=== PATIENT | male | born 1950 | race Caucasian/White ===

== ENCOUNTER 2016-12-29 03:41 | Inpatient (IN) | payer BC, MEDICARE ==
--- NOTE | ~2016-12-29 | DS ---
Discharge Summary [facility] [address] [place]. [address] NAME: WELLINGTON COSTELLO : 52 STATUS : DIS IN PAT#: [id number] AGE: 66 ADM/REG DATE : 12/29/16 MR#: [id number] REPORT SERV DATE: 01/01/17 DICTATED BY: CASTRO SANTOS DATE: 12/31/16 REPORT STATUS : Draft TRANSCRIBED BY: MODL DATE: 12/31/16 ADMISSION DATE: 12/29/2016 DISCHARGE DATE: 12/31/2016 CHIEF COMPLAINT ON ADMISSION: Shortness of breath. DISCHARGE DIAGNOSES: 1. Community-acquired pneumonia. 2. Sepsis due to community-acquired pneumonia, resolved. 3. History of coronary artery disease with prior percutaneous coronary intervention. 4. History of atrial fibrillation. HISTORY OF PRESENT ILLNESS: Please see full H and P for details regarding initial presentation. HOSPITAL COURSE: 1. Left lower lobe community-acquired pneumonia with acute hypoxic respiratory failure and sepsis. The patient was admitted to the hospital, started on Rocephin and azithromycin, he received three days of this course. His oxygen requirements have decreased down to room air, and sepsis has improved as well. White blood cell count has improved to 11.7. He is feeling much better and wishes to be discharged to home. We will recommend outpatient followup with primary care with followup chest x-ray. His imaging here included a CTA of the chest, which showed no pulmonary embolism; however, did show subtle nodular infiltrate inferior lingular segment and peripheral bilateral lower lobe at the lung bases suspicious for early acute bilateral pneumonia pattern. He will be discharged on Levaquin to complete his course. 2. History of atrial fibrillation status post pacemaker as well as history of coronary artery disease prior PCI. The patient will be continued on his outpatient regimen. His INR is 2.1 at discharge. We will need this to be followed up at discharge given he will be on fluoroquinolone. Again follow up with primary care in five to seven days. We would recommend an INR check on Friday. 3. History of hypothyroidism and BPH. Continue outpatient medications without change. MEDICATION AT DISCHARGE: The patient will resume all previous home medications and start Levaquin 750 mg p.o. for an additional four days. DISCHARGE LABORATORY DATA: White blood cell count 11.7, hemoglobin 10.6, and platelet count 243. BMP is grossly unremarkable. Time spent on this discharge is greater than 30 minutes. DNK/MODL Discharge Summary [place] [address] [address] NAME: WELLINGTON COSTELLO : 52 STATUS : DIS IN PAT#: [id number] AGE: 66 ADM/REG DATE : 12/29/16 MR#: [id number] REPORT SERV DATE: 01/01/17 DICTATED BY: CASTRO SANTOS DATE: 12/31/16 REPORT STATUS : Draft TRANSCRIBED BY: MODL DATE: 12/31/16 Castro Santos MD / [id number] CC: MD Kerri Hill RN
--- NOTE | ~2016-12-29 | HP ---
History And Physical [place] [id number] [place]. [address] NAME: WELLINGTON GUZMAN : 52 STATUS : ADM IN [facility]#: [id number] AGE: 66 ADM/REG DATE : 12/29/16 MR#: [id number] REPORT SERV DATE: 12/29/16 DICTATED BY: GIANFRANCO KEYS DATE: 12/29/16 REPORT STATUS : Draft TRANSCRIBED BY: MODL DATE: 12/29/16 DATE OF ADMISSION: 12/29/2016 POINT OF ENTRY: [facility] Emergency Department. PRIMARY CARE PHYSICIAN: Dr. Khan at [facility]. PRIMARY CONTROL ROOM TECHNICIAN: Dr. Nguyễn with [facility]. CHIEF COMPLAINT: Shortness of breath, chest tightness, and fevers. HISTORY OF PRESENT ILLNESS: Mr. Guzman is a 66-year-old gentleman with a history of coronary artery disease with prior PCI as well as hypertension; atrial fibrillation, on Coumadin as well as hypothyroidism, who presents to the emergency department with multiple complaints including shortness of breath, chest tightness as well as fevers. The patient states that he has been having cold-like symptoms since Friday including low- grade fevers, sinus congestion, drainage, cough, and sputum production. On Friday night at approximately 10:00 p.m., he had the acute onset of severe chest tightness and shortness of breath resulting in respiratory distress for which he called 911. Upon EMS arrival, he was noted to be hypoxemic as well as had a low-grade fever of 101 degrees Fahrenheit. The patient at that time also was reporting what sounds to be either chills or rigors. Initial evaluation in the emergency department was remarkable for hypoxemia with an ABG with saturation of 91% on 3 liters nasal cannula, white count of 12,100, and troponin mildly elevated at 0.12. Chest x-ray shows a left lower lobe infiltrate. CTA of the chest was negative for PE, but did show bibasilar infiltrates concerning for early developing pneumonia. The patient was subsequently admitted to the Hospitalist Service for further evaluation and management. The patient, otherwise, denies any palpitations, abdominal pain, nausea, vomiting, diarrhea, constipation, dysuria, lower extremity edema, melena, hematochezia, hemoptysis, or hematemesis. COMPREHENSIVE REVIEW OF SYSTEMS: Otherwise, negative unless listed in the history of present illness. PREVIOUS MEDICAL HISTORY: 1. Coronary artery disease with prior PCI. 2. Hypertension. 3. Atrial fibrillation, on anticoagulation. 4. Hypothyroidism. 5. BPH. 6. Status post pacemaker insertion. PAST SURGICAL HISTORY: History And Physical [address] [address] NAME: WELLINGTON GUZMAN : 52 STATUS : ADM IN [facility]#: [id number] AGE: 66 ADM/REG DATE : 12/29/16 MR#: [id number] REPORT SERV DATE: 12/29/16 DICTATED BY: GIANFRANCO KEYS DATE: 12/29/16 REPORT STATUS : Draft TRANSCRIBED BY: RIGO DATE: 12/29/16 1. Bilateral total knee replacement. 2. Left total hip. 3. Pacemaker insertion. 4. Cardiac PCI. ALLERGIES: NO KNOWN DRUG ALLERGIES. HOME MEDICATIONS: Pending at the time of dictation. SOCIAL HISTORY: He is a former smoker, quit in 2001. Denies alcohol. Denies illicits. FAMILY MEDICAL HISTORY: Mother with coronary artery disease. Father with hypertension. Siblings with coronary artery disease. LABORATORIES AND IMAGIN. White count is 12.1, hemoglobin is 13.2, hematocrit is 39.4, and platelet count is 233. INR is pending at the time of dictation. 2. Sodium is 136, potassium 3.4, chloride 101, carbon dioxide 26, BUN 15, creatinine 1.33, and glucose is 110. Calcium is 8.8, protein is 7.2, albumin is 3.5, bilirubin is 0.5, ALT is 40, AST is 26, and alkaline phosphatase is 95. 3. Troponin 0.12. 4. BNP is 107.5. 5. Lactic acid is 1.7. 6. Flu swab is negative. 7. ABG; pH is 7.47, pCO2 is 23, PO2 is 58, bicarbonate is 17, saturating 91% on 3 liters nasal cannula. 8. EKG per my review shows normal sinus rhythm. No evidence of any acute ischemia or infarction. 9. Chest x-ray per my review shows a left lower lobe infiltrate. 10.CTA of the chest shows no evidence of pulmonary embolism but shows bibasilar infiltrate concerning for early developing pneumonia. PHYSICAL EXAMINATION: VITAL SIGNS: Temperature is 99.9 degrees Fahrenheit, pulse is 78, respirations 20, saturating 95% on 4 liters of nasal cannula, and blood pressure 116/70. On recheck, it is now blood pressure of 130/54, pulse is 76, and saturating 96% to 98% on 2 liters of nasal cannula. GENERAL: The patient is awake, alert, in no acute distress, resting comfortably. He is a well-developed, well-nourished elderly male. HEENT: Atraumatic and normocephalic. Moist mucous membranes. Pupils are equal, round, and reactive to light and accommodation. Extraocular eye movements are intact. No scleral icterus. NECK: No jugular venous distention. No carotid bruits. CARDIAC: Regular rate and rhythm. No murmurs, rubs, or gallops. HEART: Normal S1 and S2. LUNGS: He is on oxygen but in no respiratory distress. He does have inspiratory rales and rhonchi in almost all lung rick. History And Physical [address] [address] NAME: WELLINGTON GUZMAN : 52 STATUS : ADM IN [facility]#: [id number] AGE: 66 ADM/REG DATE : 12/29/16 MR#: [id number] REPORT SERV DATE: 12/29/16 DICTATED BY: GIANFRANCO KEYS DATE: 12/29/16 REPORT STATUS : Draft TRANSCRIBED BY: RIGO DATE: 12/29/16 ABDOMEN: Obese, soft, nontender, and nondistended. Good bowel sounds. No rebound, guarding, or rigidity. EXTREMITIES: Warm and well perfused. No cyanosis, clubbing, or edema. SKIN: Warm and dry. PSYCHIATRIC: Affect is appropriate. NEUROLOGIC: Alert and oriented x3. Cranial nerves 2 through 12 grossly intact. Speech is normal. Gait is not assessed. ASSESSMENT AND PLAN: Mr. Guzman is a 66-year-old gentleman who presents with fevers, cough as well as shortness of breath and chest tightness and found to have evidence of bibasilar pneumonia as well as acute hypoxic respiratory failure. PROBLEM LIST: 1. Community-acquired pneumonia. 2. Acute chronic obstructive pulmonary disease exacerbation versus acute bronchitis. 3. Acute hypoxic respiratory failure. 4. Elevated troponin level. 5. Sepsis. 6. Hypokalemia. PLAN: 1. Pneumonia. We will place the patient on Rocephin and azithromycin. We will try to obtain sputum cultures as well as urinary antigens. Place the patient on pulmonary toilet. 2. Acute COPD exacerbation versus acute bronchitis. The patient denies any history of COPD but does have some smoking history. He has rales and rhonchi in all lung rick but only evidence of very faint infiltrates in the bilateral bases concerning for bronchitis versus COPD. As such, we will place him on some steroids as well as bronchodilators in addition to the above-mentioned antibiotics. 3. Acute hypoxic respiratory failure, likely secondary to #1 and #2 above as CTA was negative for PE, and there does not appear to be any evidence of volume overload. We will attempt to wean as tolerated. The patient is already down to 2 liters by nasal cannula and saturating well. 4. Elevated troponin level. The patient denies any morris chest pain but does keep mentioning chest tightness. I suspect this is all demand ischemia from the patient's hypoxemia, respiratory distress, and pneumonia. We will continue to trend out cardiac enzymes. Continue the patient on aspirin. 5. Sepsis. The patient meets criteria with leukocytosis, fevers, and tachypnea. Lactic acid is within normal limits. Blood cultures have been obtained. We will also try to obtain sputum culture and a urinalysis as well as procalcitonin. Continue IV fluids as well as broad-spectrum antibiotics. 6. Atrial fibrillation, on anticoagulation. We will need to check an INR. Pharmacy to manage his Coumadin. 7. DVT prophylaxis, on Coumadin. 8. Code status. The patient wishes to be a full code. History And Physical [address] [address] NAME: WELLINGTON GUZMAN : 52 STATUS : ADM IN [facility]#: [id number] AGE: 66 ADM/REG DATE : 12/29/16 MR#: [id number] REPORT SERV DATE: 12/29/16 DICTATED BY: GIANFRANCO KEYS DATE: 12/29/16 REPORT STATUS : Draft TRANSCRIBED BY: RIGO DATE: 12/29/16 MADDY/RIGO Gianfranco Keys MD / [id number] CC: Marc Allen PATRICIA J
[2016-12-29 03:36] LABS: BASOPHILS 0.2 %; BASOPHILS ABSOLUTE 0.03 10/3/uL (0.0-0.16); EOSINOPHILS 1.8 %; EOSINOPHILS ABSOLUTE 0.22 10/3/uL (0.0-0.53); HEMATOCRIT 39.4 % (40.0-51.0); HEMOGLOBIN 13.2 g/dL (13.6-17.8); IMMATURE GRANULOCYTES 0.3 %; IMMATURE GRANULOCYTES ABSOLUTE 0.04 10/3/uL (0.0-0.11); LYMPHOCYTES 4.7 %; LYMPHOCYTES ABSOLUTE 0.57 10/3/uL (0.67-4.30); MEAN CORPUS HGB CONC 33.5 g/dL (32.0-36.0); MEAN PLATELET VOLUME 10.1 fL (9.2-13.0); MONOCYTES 5.5 %; MONOCYTES ABSOLUTE 0.66 10/3/uL (0.21-1.20); NEUTROPHILS 87.5 %; NEUTROPHILS ABSOLUTE 10.57 10/3/uL (2.02-8.40); PLATELET COUNT 233 10/3/uL (150-400); RBC DISTRIBUTION WIDTH 13.3 % (12.0-16.0); RED CELL COUNT 4.26 10/6/uL (4.7-6.1)
[2016-12-29 03:37] LABS: CARBOXYHEMOGLOBIN 2.4 % (0-3); DEVICE NC; HCO3 (ACTUAL BICARBONATE) 16.6 MEQ/L (23-27); INSTRUMENT SERIAL # 8087; METHEMOGLOBIN 0.3 % (0-3); O2 CONTENT 17.5 VOL% (18-24); OPERATOR ID 17537; PCO2 (CO2 TENSION) 23 MMHG (35-45); PO2 (O2 TENSION) 58 MMHG (79-93); SAMPLE Arterial; pH 7.47 (7.37-7.43)
[2016-12-29 03:37] LABS: ER CBC TAT 0 Hrs 09 Mins; MANUAL DIFF NO %; MEAN CORPUSCULAR VOLUME 92.5 fL (80-100); WHITE BLOOD CELLS 12.1 10/3/uL (4.5-10.5)
[2016-12-29 03:38] LABS: ALLENS TEST Pos
[2016-12-29 03:40] LABS: INFLUENZA A SCREEN NEGATIVE (NEGATIVE); INFLUENZA B SCREEN NEGATIVE (NEGATIVE)
[2016-12-29 03:53] LABS: LACTATE 1.7 MMOL/L (0.3-2.4)
[2016-12-29 04:03] LABS: A/G RATIO 0.9 (0.7-1.9); ALBUMIN 3.5 G/DL (3.5-5.0); ALKALINE PHOSPHATASE 95 U/L (45-117); BUN (BLOOD UREA NITROGEN) 15 MG/DL (6-23); CALCIUM, SERUM 8.8 MG/DL (8.5-10.4); CHLORIDE, SERUM 101 MMOL/L (96-112); CO2 (CARBON DIOXIDE) 26 MMOL/L (24-34); CREATININE 1.33 MG/DL (0.70-1.30); GFR AFRICAN AMERICAN 65 ML/MIN (>=60); GFR NON AFRICAN AMERICAN 56 ML/MIN (>=60); GLOBULIN 3.7 G/DL (2.5-4.1); GLUCOSE, SERUM 110 MG/DL (60-99); POTASSIUM, SERUM 3.4 MMOL/L (3.5-5.3); SGOT(AST) 26 U/L (5-40); SGPT(ALT) 40 U/L (5-65); SODIUM, SERUM 136 MMOL/L (135-148); TOTAL BILIRUBIN 0.5 MG/DL (0-1.2); TOTAL PROTEIN 7.2 G/DL (6.0-8.5)
[2016-12-29 04:12] LABS: TROPONIN I 0.12 NG/ML (<0.05)
[2016-12-29 07:04] LABS: INTERNATIONAL NORMAL RATI 1.7 UNITS (-); PARTIAL THROMBO TIME 35.2 SEC (22.5-37.2); PROTIME (NOT ORD) 19.7 SEC (12.0-14.5)
[2016-12-29 09:06] LABS: PROCALCITONIN 0.07 ng/mL (<0.5)
[2016-12-29] MEDS ORDERED: PACERONE100 MG PO (12:17)
[2016-12-29] MEDS ORDERED: ASAB PO (12:18)
[2016-12-29] MEDS ORDERED: APRES25 PO (12:18)
[2016-12-29] MEDS ORDERED: PAX20 PO ×2 (12:18→15:45)
[2016-12-29] MEDS ORDERED: VITAMIN E OTC PO (12:19)
[2016-12-29] MEDS ORDERED: VITAMIN B 12 OTC PO (12:20)
[2016-12-29] MEDS ORDERED: CALTRA600D PO (12:21)
[2016-12-29] MEDS ORDERED: LIPITOR80 MG PO (12:22)
[2016-12-29] MEDS ORDERED: IMDUR30 PO (12:22)
[2016-12-29] MEDS ORDERED: JANTOVEN5 MG PO ×2 (12:24→15:47)
[2016-12-29] MEDS ORDERED: SPIRO25 PO (12:24)
[2016-12-29] MEDS ORDERED: JANTOVEN7.5 MG PO ×2 (12:24→15:47)
[2016-12-29] MEDS ORDERED: VITAMIN C100 MG PO (12:25)
[2016-12-29] MEDS ORDERED: PROMEGA PO (12:26)
[2016-12-29] MEDS ORDERED: FERROUS SULF325 M1 PO (12:26)
[2016-12-29] MEDS ORDERED: MIRAPEX125 PO ×2 (12:27→15:45)
[2016-12-29] MEDS ORDERED: LIOR10 PO (12:27)
[2016-12-29] MEDS ORDERED: COREG3 PO (12:28)
[2016-12-29] MEDS ORDERED: FLOMAX4 PO (12:28)
[2016-12-29] MEDS ORDERED: LEVOTHYROXIN25 MCG PO (12:28)
[2016-12-29 13:28] LABS: CPK 127 U/L (0-200)
[2016-12-29 13:29] LABS: CK-MB 1.3 NG/ML
[2016-12-29] MEDS ORDERED: VITAMIN C OTC PO (15:42)
[2016-12-29] MEDS ORDERED: HALF81 PO (15:43)
[2016-12-29] MEDS ORDERED: OMEGA-3 OTC PO (15:44)
[2016-12-29 16:16] LABS: ASCORBIC ACID (UR NOT ORDER) 40 (NEG); BILIRUBIN, URINE NEGATIVE (NEG); KETONE, URINE NEGATIVE (NEG); LEUKOCYTE ESTERASE(NOT OR NEG (NEG); WBC (NOT ORDERED) (RFLEX) < 1 (0-5)
[2016-12-29 19:25] LABS: CK-MB 2.2 NG/ML; CPK 171 U/L (0-200); TROPONIN I 0.06 NG/ML (<0.05)
[2016-12-30 06:20] LABS: BASOPHILS 0.1 %; BASOPHILS ABSOLUTE 0.01 10/3/uL (0.0-0.16); EOSINOPHILS 0 %; HEMOGLOBIN 10.8 g/dL (13.6-17.8); IMMATURE GRANULOCYTES 0.3 %; IMMATURE GRANULOCYTES ABSOLUTE 0.06 10/3/uL (0.0-0.11); LYMPHOCYTES 3.5 %; LYMPHOCYTES ABSOLUTE 0.61 10/3/uL (0.67-4.30); MEAN CORPUS HGB CONC 33.3 g/dL (32.0-36.0); MEAN CORPUSCULAR HEMOGLOB 30.8 pg (26.0-34.0); MEAN CORPUSCULAR VOLUME 92.3 fL (80-100); MEAN PLATELET VOLUME 10.2 fL (9.2-13.0); NEUTROPHILS 89.1 %; NEUTROPHILS ABSOLUTE 15.33 10/3/uL (2.02-8.40); PLATELET COUNT 228 10/3/uL (150-400); RBC DISTRIBUTION WIDTH 13.3 % (12.0-16.0); RED CELL COUNT 3.51 10/6/uL (4.7-6.1)
[2016-12-30 06:29] LABS: HEMATOCRIT 32.4 % (40.0-51.0); MANUAL DIFF NO %; WHITE BLOOD CELLS 17.2 10/3/uL (4.5-10.5)
[2016-12-30 06:31] LABS: INTERNATIONAL NORMAL RATI 1.9 UNITS (-); PROTIME (NOT ORD) 21.6 SEC (12.0-14.5)
[2016-12-30 06:44] LABS: A/G RATIO 0.9 (0.7-1.9); CALCIUM, SERUM 8.5 MG/DL (8.5-10.4); CHLORIDE, SERUM 110 MMOL/L (96-112); CO2 (CARBON DIOXIDE) 22 MMOL/L (24-34); CREATININE 1.13 MG/DL (0.70-1.30); GFR AFRICAN AMERICAN 79 ML/MIN (>=60); GFR NON AFRICAN AMERICAN 68 ML/MIN (>=60); GLOBULIN 3.2 G/DL (2.5-4.1); GLUCOSE, SERUM 126 MG/DL (60-99); SGOT(AST) 23 U/L (5-40); SGPT(ALT) 29 U/L (5-65); TOTAL BILIRUBIN 0.5 MG/DL (0-1.2); TOTAL PROTEIN 6.2 G/DL (6.0-8.5)
[2016-12-30 06:45] LABS: ALKALINE PHOSPHATASE 66 U/L (45-117); BUN (BLOOD UREA NITROGEN) 20 MG/DL (6-23); SODIUM, SERUM 143 MMOL/L (135-148); TROPONIN I 0.06 NG/ML (<0.05)
[2016-12-31 05:10] LABS: BASOPHILS 0.1 %; BASOPHILS ABSOLUTE 0.01 10/3/uL (0.0-0.16); EOSINOPHILS 0 %; HEMATOCRIT 32.7 % (40.0-51.0); HEMOGLOBIN 10.6 g/dL (13.6-17.8); IMMATURE GRANULOCYTES 0.6 %; IMMATURE GRANULOCYTES ABSOLUTE 0.07 10/3/uL (0.0-0.11); LYMPHOCYTES 6.8 %; MANUAL DIFF NO %; MEAN CORPUS HGB CONC 32.4 g/dL (32.0-36.0); MEAN CORPUSCULAR HEMOGLOB 30.5 pg (26.0-34.0); MEAN PLATELET VOLUME 10.4 fL (9.2-13.0); MONOCYTES 8.1 %; MONOCYTES ABSOLUTE 0.95 10/3/uL (0.21-1.20); NEUTROPHILS 84.4 %; NEUTROPHILS ABSOLUTE 9.88 10/3/uL (2.02-8.40); PLATELET COUNT 243 10/3/uL (150-400); RBC DISTRIBUTION WIDTH 13.5 % (12.0-16.0); RED CELL COUNT 3.48 10/6/uL (4.7-6.1); WHITE BLOOD CELLS 11.7 10/3/uL (4.5-10.5)
[2016-12-31 05:17] LABS: INTERNATIONAL NORMAL RATI 2.1 UNITS (-); PROTIME (NOT ORD) 23.3 SEC (12.0-14.5)
[2016-12-31] MEDS ORDERED: LEVAQUIN750 MG PO (16:00)
[2017-01-10] MEDS ORDERED: CORDARONE PO (16:42)
[2017-01-10] MEDS ORDERED: VITC500 PO (16:42)
[2017-01-10] MEDS ORDERED: FISH-EPA1000 MG PO (16:42)
[2017-01-10] MEDS ORDERED: C5 PO (16:42)
[2017-01-10] MEDS ORDERED: ISORDIL10 PO (16:44)
[2017-01-10] MEDS ORDERED: VITE PO (16:45)
[2017-01-10] MEDS ORDERED: CYANO1000T PO (16:46)
== END 2016-12-31 17:47 | disposition home or self-care (01) | DRG 871 ==
LOC: ER 03:41 → 5NO 07:01
PROVIDERS: Hospitalist; Internal Medicine; Specialist
DX: A41.9 Sepsis, unspecified organism (principal); J18.1 Lobar pneumonia, unspecified organism; J96.01 Acute respiratory failure with hypoxia; I48.2 Chronic atrial fibrillation; I24.8 Other forms of acute ischemic heart disease; J44.1 Chronic obstructive pulmonary disease with (acute) exacerbation; I25.10 Atherosclerotic heart disease of native coronary artery without angina pectoris; Z95.5 Presence of coronary angioplasty implant and graft; I10 Essential (primary) hypertension; Z79.01 Long term (current) use of anticoagulants; E03.9 Hypothyroidism, unspecified; Z95.0 Presence of cardiac pacemaker; Z87.891 Personal history of nicotine dependence; E87.6 Hypokalemia; R65.20 Severe sepsis without septic shock
CPT/HCPCS: 36600; 71010; 71275; 80053; 81001; 82550; 82553; 82805; 82962; 83605; 83880; 84145; 84484; 85025; 85610; 85730; 87040; 87070; 87077; 87186; 87205; 87449; 87804; 93005; 94640; 96374; 96375; 99285; A9270-GY; J0456; J2930; Q9967

== ENCOUNTER 2017-01-16 05:41 | Day surgery (SDC) | payer BC, MEDICARE ==
--- NOTE | ~2017-01-16 | EGD ---
EGD REPORT [facility] [address] [place]. [address] NAME: WELLINGTON GUZMAN : 52 STATUS : REG [facility]#: [id number] AGE: 66 ADM/REG DATE : 01/16/17 MR#: [id number] REPORT SERV DATE: 01/16/17 DICTATED BY: BRUNO LORA DATE: 01/16/17 REPORT STATUS : Draft [facility]ANS[facility]ED [facility]: [facility] DATE: 01/16/17 [facility] Patient Name: Wellington Guzman Date of : 1950 Attending MD: NORMA LORA MD Procedure Date No Time: 01/16/2017 Procedure: Colonoscopy Indications: Screening for colorectal malignant neoplasm Referring MD: Gisela Khan Medicines: See the Anesthesia note for documentation of the administered medications Complications: No immediate complications. Estimated blood loss: Minimal. Procedure: Pre-Anesthesia Assessment: - ASA Grade Assessment: III - A patient with severe systemic disease. - Prior to the procedure, a History and Physical was performed, and patient medications and allergies were reviewed. The patient's tolerance of previous anesthesia was also reviewed. The risks and benefits of the procedure and the sedation options and risks were discussed with the patient. All questions were answered, and informed consent was obtained. Prior Anticoagulants: The patient has taken Coumadin (warfarin), last dose was 4 days prior to procedure. ASA Grade Assessment: III - A patient with severe systemic disease. After reviewing the risks and benefits, the patient was deemed in satisfactory condition to undergo the procedure. - Prior to the procedure, a History and Physical was performed, and patient medications and allergies were reviewed. The patient's tolerance of previous anesthesia was also reviewed. The risks and benefits of the procedure and the sedation options and risks were discussed with the patient. All questions were answered, and informed consent was obtained. Prior Anticoagulants: The patient has taken aspirin and Lovenox (enoxaparin), last doses were 1 day prior to procedure. After reviewing the risks and benefits, the patient was deemed in satisfactory condition to undergo the procedure. After I obtained informed consent, the scope was passed under direct vision. Throughout the procedure, the patient's blood pressure, pulse, and oxygen saturations were monitored continuously. The PCF [id number] was introduced through the anus and advanced to the cecum, EGD REPORT [address] [address] NAME: WELLINGTON GUZMAN : 52 STATUS : REG [facility]#: [id number] AGE: 66 ADM/REG DATE : 01/16/17 MR#: [id number] REPORT SERV DATE: 01/16/17 DICTATED BY: BRUNO LORA DATE: 01/16/17 REPORT STATUS : Draft [facility]ANSCRIBED BY: [facility] DATE: 01/16/17 identified by appendiceal orifice and ileocecal valve. The ileocecal valve, appendiceal orifice and rectum were photographed. The entire colon was examined. The colonoscopy was technically difficult and complex due to significant looping and a tortuous colon. Successful completion of the procedure was aided by applying abdominal pressure. The patient tolerated the procedure well. The quality of the bowel preparation was adequate. Findings: The perianal and digital rectal examinations were normal. A sessile polyp was found in the sigmoid colon. The polyp was 3 mm in size. The polyp was removed with a piecemeal technique using a cold biopsy forceps. Resection and retrieval were complete. Three sessile polyps were found in the rectum. The polyps were small in size. These polyps were removed with a piecemeal technique using a cold biopsy forceps. Resection and retrieval were complete. A sessile polyp was found in the rectum. The polyp was 5 mm in size. The polyp was removed with a cold snare. Resection and retrieval were complete. Non-bleeding internal hemorrhoids were found during retroflexion and were Grade I (internal hemorrhoids that do not prolapse). No other significant abnormalities were identified in a careful examination of the remainder of the colon. Impression: - One 3 mm polyp in the sigmoid colon. Resected and retrieved. - Three small polyps in the rectum. Resected and retrieved. - One 5 mm polyp in the rectum. Resected and retrieved. - Non-bleeding internal hemorrhoids. Recommendation: - Patient has a contact number available for emergencies. The signs and symptoms of potential delayed complications were discussed with the patient. Return to normal activities tomorrow. Written discharge instructions were provided to the patient. - Regular diet. - Discharge patient to home. - Continue present medications. - Await pathology results. - Repeat colonoscopy in 3 years for surveillance. - Restart your coumadin at the regular dose today. Restart lovenox, take one dose today and two doses from tomorrow all the way till Friday and call the office on Friday to recheck INR Procedure Code(s): --- Professional --- EGD REPORT [address] [address] NAME: WELLINGTON GUZMAN : 52 STATUS : REG [facility]#: [id number] AGE: 66 ADM/REG DATE : 01/16/17 MR#: [id number] REPORT SERV DATE: 01/16/17 DICTATED BY: BRUNO LORA DATE: 01/16/17 REPORT STATUS : Draft TRANSCRIBED BY: [employer] DATE: 01/16/17 91021, Colonoscopy, flexible, proximal to splenic flexure; with removal of tumor(s), polyp(s), or other lesion(s) by snare technique 12855, 59, Colonoscopy, flexible, proximal to splenic flexure; with biopsy, single or multiple Diagnosis Code(s): --- Professional --- K62.1, Rectal polyp D12.5, Benign neoplasm of sigmoid colon K64.0, First degree hemorrhoids Z12.11, Encounter for screening for malignant neoplasm of colon CPT copyright 2013 [employer]. All rights reserved. The codes documented in this report are preliminary and upon trust manager assistant review may be revised to meet current compliance requirements. NORMA LORA MD 01/16/2017 7:35 AM This report has been signed electronically. Number of Addenda: 0 Note Initiated On: 01/16/2017 6:56 AM Scope Withdrawal Time 0 hours 11 minutes 12 seconds [id number] [id number]
[~2017-01-16 05:41] MED LIST: APRES25 PO; ASAB PO; C5 PO; CALTRA600D PO; CORDARONE PO; COREG3 PO; CYANO1000T PO; FERROUS SULF325 M1 PO; FISH-EPA1000 MG PO; FLOMAX4 PO; HALF81 PO; IMDUR30 PO; ISORDIL10 PO; JANTOVEN5 MG PO; JANTOVEN7.5 MG PO; LEVAQUIN750 MG PO; LEVOTHYROXIN25 MCG PO; LIOR10 PO; LIPITOR80 MG PO; MIRAPEX125 PO; OMEGA-3 OTC PO; PACERONE100 MG PO; PAX20 PO; PROMEGA PO; SPIRO25 PO; VITAMIN B 12 OTC PO; VITAMIN C OTC PO; VITAMIN C100 MG PO; VITAMIN E OTC PO; VITC500 PO; VITE PO
== END 2017-01-16 23:59 | disposition home or self-care (01) ==
LOC: DMU 05:41
PROVIDERS: Internal Medicine Gastroenterology
PROC: 0DBP8ZX Excision of Rectum, Via Natural or Artificial Opening Endoscopic, Diagnostic (ICD-10-PCS; principal; 2017-01-16 07:30)
PROC: 0DBN8ZX Excision of Sigmoid Colon, Via Natural or Artificial Opening Endoscopic, Diagnostic (ICD-10-PCS; 2017-01-16 07:30)
DX: Z12.11 Encounter for screening for malignant neoplasm of colon (principal); D12.5 Benign neoplasm of sigmoid colon; D12.8 Benign neoplasm of rectum; K64.0 First degree hemorrhoids; I10 Essential (primary) hypertension; I25.10 Atherosclerotic heart disease of native coronary artery without angina pectoris; I48.91 Unspecified atrial fibrillation; E78.00 Pure hypercholesterolemia, unspecified; F41.9 Anxiety disorder, unspecified; F32.9 Major depressive disorder, single episode, unspecified; M06.9 Rheumatoid arthritis, unspecified; E03.9 Hypothyroidism, unspecified; Z95.810 Presence of automatic (implantable) cardiac defibrillator; Z90.49 Acquired absence of other specified parts of digestive tract; Z95.5 Presence of coronary angioplasty implant and graft; Z98.890 Other specified postprocedural states
CPT/HCPCS: 88305